=== PATIENT | female | born 2000 | race Caucasian/White ===

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

== ENCOUNTER 2021-04-05 17:20 | Emergency (ER) | payer BC ==
[~2021-04-05] VITALS: Ht 154.9 cm; Wt 65.0 kg
[~2021-04-05 17:20] MED LIST changes: +CYCLOBENZAPRINE10 MG PO; +TORADOL10 MG PO
[2021-04-05 17:53] VITALS: BP 108/69; Ht 154.9 cm; Wt 65.0 kg
[2021-04-05 19:26] LABS: BASOPHILS 0.3 % (0-2); EOSINOPHILS 0.9 % (0-7); HEMATOCRIT 35.6 % (36.0-48.0); HEMOGLOBIN 11.7 g/dL (12-16); LYMPHOCYTES 24.3 % (15-50); MCHC 32.7 g/dL (31.0-37.0); MCV 85.4 fL (80.0-100.0); MEAN PLATELET VOLUME 7.2 fL (7.4-10.4); MONOCYTES 6.1 % (2-11); NEUTROPHILS 68.4 % (40-80); PLATELET COUNT 303 10x3/uL (130-400); RBC 4.17 10x6/uL (4.00-5.40); RDW 12.7 % (11.5-14.5); WBC 8.7 10x3/uL (4.8-10.8)
[2021-04-05 19:40] LABS: CALC OSMOLALITY 269 mosm/kg (275-300); CALCIUM 8.8 mg/dL (8.5-10.1); CARBON DIOXIDE 28.1 mmol/L (21.0-32.0); CHLORIDE - SERUM 103 mmol/L (98-107); CREATININE - SERUM 0.5 mg/dL (0.6-1.3); POTASSIUM - SERUM 3.6 mmol/L (3.5-5.1); SODIUM 137 mmol/L (136-145); UREA NITROGEN 4 mg/dL (7-18); eGFR NON AFRICAN AMERICAN > 90 mL/min (90-120)
[2021-04-05 19:44] LABS: GLUCOSE 86 mg/dL (74-106)
[2021-04-05 19:45] LABS: BILIRUBIN NEGATIVE (NEGATIVE); KETONE NEGATIVE mg/dL (< 1+); NITRITE NEGATIVE (NEGATIVE); PH 7.5 (5.0-8.0); UROBILINOGEN NORMAL mg/dL (< 2)
[2021-04-05 20:05] LABS: ALBUMIN 3.6 g/dL (3.4-5.0); ALKALINE PHOSPHATASE 40 U/L (30-120); ALT (SGPT) 14 U/L (10-68); BILIRUBIN - TOTAL 0.54 mg/dL (0.2-1.3); HCG - QUANTITATIVE (MATERNAL) 143580 mIU/mL; PROTEIN - SERUM 6.7 g/dL (6.4-8.2)
[2021-04-05] MEDS ORDERED: ZOFRAN ODT4 MG/UDTAB PO (21:53)
== END 2021-04-05 22:08 | disposition home or self-care (01) ==
LOC: D.ER 17:20
PROVIDERS: Family Medicine
DX: N93.9 Abnormal uterine and vaginal bleeding, unspecified (principal); O45.91 Premature separation of placenta, unspecified, first trimester; Z3A.01 Less than 8 weeks gestation of pregnancy